=== PATIENT | male | born 1990 | race African-American/Black ===

== ENCOUNTER 2016-10-23 13:32 | Emergency (ER) | payer SELFPAY ==
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
== END 2016-10-23 15:25 | disposition home or self-care (01) ==
LOC: CFTX 13:32 → CED 13:32 → CFTX 14:09
DX: S61.412A Laceration without foreign body of left hand, initial encounter (principal); F17.200 Nicotine dependence, unspecified, uncomplicated; Y04.2XXA Assault by strike against or bumped into by another person, initial encounter
CPT/HCPCS: 12001; 73130; 99283